=== PATIENT | male | born 1985 | race Caucasian/White ===

== ENCOUNTER 2020-10-07 01:59 | Observation (INO) ==
[2020-10-07] MEDS ORDERED: MoRPHine SULFATE 4 MG/ML 1 ML CARP\\VIAL IV PRN (02:31)
[2020-10-07] MEDS ORDERED: ONDANSETRON INJ 2 MG/ML 2 ML VIAL IV STA (02:31)
[2020-10-07 02:42] LABS: Appearance Urine Clear (Clear); Bacteria Urine Automated Negative (Negative); Bilirubin Urine Negative (Negative); Blood Urine Negative (Negative); Cast Urine Automated 0 /lpf (0-5); Color Urine Yellow; Epithelial Cell Urine Auto 0-5 /lpf (0-5); Glucose Urine UA Negative (Negative); Ketones Urine Negative (Negative); Leukocyte Esterase Urine Negative (Negative); Nitrite Urine Negative (Negative); RBC Urine Automated 0-4 /hpf (0-4); Specific Gravity Urine 1.014 (1.000-1.030); Urobilinogen Urine Negative (Negative); WBC Urine Automated 0 /hpf (0-5); pH Urine 7.5 (4.5-7.5)
[2020-10-07 02:43] LABS: Basophils # (auto) 0.01 K/uL (0-0.2); Basophils % (auto) 0.1 %; Eosinophils # (auto) 0.06 K/uL (0-0.5); Eosinophils % (auto) 0.5 %; Hematocrit (blood only) 39.4 % (42-52); Hemoglobin 13.6 g/dL (14.0-18.0); Immature Granulocytes # (auto) 0.01 K/uL (0.00-0.02); Immature Granulocytes % (auto) 0.1 %; Lymphocytes # (auto) 1.74 K/uL (1.2-3.4); Lymphocytes % (auto) 15.5 %; Mean Corpuscular Hemoglobin 32.1 pg (25-34); Mean Corpuscular Hgb Conc 34.5 g/dL (32-36); Mean Corpuscular Volume 92.9 fL (80-100); Mean Platelet Volume 11.5 fL (7.4-10.4); Monocytes # (auto) 1.21 K/uL (0.11-0.59); Monocytes % (auto) 10.8 %; Neutrophils # (auto) 8.16 K/uL (1.4-6.5); Platelet Count 269 K/uL (130-400); RDW Coefficient of Variation 12.5 % (11.5-14.5); Red Blood Count 4.24 M/uL (4.7-6.1); White Blood Count 11.19 K/uL (4.8-10.8)
[2020-10-07 02:49] LABS: Protein Urine Trace (Negative)
[2020-10-07 02:50] LABS: Albumin Level 3.5 gm/dl (3.4-5.0); BUN Creatinine Ratio 11.6 (10-20); Calcium 8.9 mg/dl (8.5-10.1); Creatinine Clr Calc Pharmacy 145.8 ml/min; Est GFR (African American) 133.7 ml/min; Est GFR (Non-African American) 115.4 ml/min; Magnesium 2.1 mg/dl (1.8-2.4)
[2020-10-07 02:53] LABS: Albumin Globulin Ratio 0.8 (0.9-2); Bilirubin,Total 0.7 mg/dl (0.2-1); Globulin 4.5 gm/dl (2.5-4.0)
--- NOTE | 2020-10-07 04:04 | History & Physical Report ---
Date of Service October 07, 2020 Assessment & Plan (1) Acute appendicitis: Due to the patient's radiographic findings and clinical presentation we admit him to the hospital proceed as follows: Provide analgesics Provide antiemetics We will initiate antibiotics the form of cefoxitin Provide IV fluid for hydration Keep the patient n.p.o. We will proceed with a laparoscopic, possible open appendectomy. I have discussed the pre the procedure with the patient and he wishes to proceed. Additional recommendations were made based on operative findings the patient's clinical course. History of Present Illness Chief Complaint: Abdominal pain Primary Care Provider: Louis Lopez This is a 35-year-old male who presented [facility] emergency department secondary to abdominal pain. Patient said that the pain initially started approximately 8 days ago and was located in the lower abdomen. He felt initially that he merely pulled a muscle while working out in the gym so he did not initially seek medical attention. He notes over the ensuing several days the pain has been persistent and gotten somewhat worse. Has had some nausea without vomiting. He has noted some low-grade fevers. That the pain is located primarily now in the right lower quadrant and is worse with movement. He does not note any palliative factors. He also notes the pain does not radiate anywhere. He has never had any surgery on his abdomen and he has not eaten since yesterday. The patient denies any other health issues. In the emergency department the patient did have labs and imaging which I dependently reviewed. He did have a CT scan of the abdomen that showed evidence of acute appendicitis without any evidence of complication. The appendix did appear dilated measuring approximate 14 mm in size with surrounding fat stranding. Labs consisted of a CBC where his white blood cell count was 11.1. His hemoglobin and hematocrit were 13.6 and 39.4 respectively. His platelet count was noted be within normal range. Chemistry profile revealed his sodium, potassium, BUN, and creatinine were all within normal range. A Covid test has been ordered and is pending. At the time my interview the patient was resting in bed, he did have a low-grade fever and was in no distress. Allergies Allergy/AdvReac Type Severity Reaction Status Date / Time No Known Allergies Allergy Unverified 10/07/20 02:30 Home Medications Medication Instructions Recorded Confirmed Type acetaminophen [Tylenol Extra 1,000 mg PO Q6H PRN 10/07/20 10/07/20 History Strength] cyclobenzaprine 10 mg PO HS 10/07/20 10/07/20 History diclofenac sodium 75 mg PO BID 10/07/20 10/07/20 History doxycycline hyclate 100 mg PO BID 10/07/20 10/07/20 History Past Med/Surg History Medical History Acute appendicitis No chronic diseases present Social History Smoking Status: Current some day smoker Second Hand Exposure: No; Hx Alcohol Use: Yes Alcohol type: wine Hx Substance Use: No Preferred Language: Venezuelan Communication Ability: Effective Bottom Buffer Required: No Beliefs That Will Affect Care: None Current Living Situation: Spouse Other Information That Helps Us Care for You: No Feels Safe at Home: Yes Safety Concerns: Feels Safe At This Time Assistive Devices: None Review of Systems Constitutional: + fever Eyes: no diplopia Ear, Nose, Mouth, Throat: no ear pain Respiratory: no cough and no dyspnea Cardiovascular: no chest pain Gastrointestinal: + abdominal pain and + nausea Genitourinary: no dysuria Musculoskeletal: no back pain Integumentary: no rash Neurologic: no localized weakness Physical Exam Constitutional: well developed and well nourished; no acute distress Eyes: no conjunctival abnormality ENMT: Ears: no hearing impairment Neck: trachea midline Respiratory: normal respiratory effort, lungs clear to auscultation Cardiovascular: Rate/Rhythm: regular rate and regular rhythm Gastrointestinal (Abdomen): Abdomen is soft and nondistended. There is no rebound tenderness or guarding. The patient did have pain with palpation in the right lower quadrant over McBurney's point. Musculoskeletal: No calf tenderness Skin: no rashes, warm and dry Neurologic: moves all extremities Psychiatric: A+Ox3, euthymic affect Results & Data Results & Data ([facility]) Vital Signs (Past 12 Hours) Vital Signs Temp Pulse Pulse Resp BP BP Pulse Ox 10/07/20 03:40 98 10/07/20 03:31 97 10/07/20 03:30 139/92 96 10/07/20 03:20 97 10/07/20 03:10 97 10/07/20 03:01 97 10/07/20 03:00 152/104 H 97 10/07/20 02:57 154/90 H 96 10/07/20 02:39 104 H 19 154/90 H 97 10/07/20 02:33 38.6 C H 101 H 20 156/106 H 98 10/07/20 02:26 106 H 19 156/106 H 98 10/07/20 02:04 37.6 C H 122 H 20 134/83 98 Supervising Physician Co-Signing Physician Notes I personally saw and evaluated the patient with Simone Lawrence PA-C and agree with the assessment and plan. 35 yo male with acute appendicitis -NPO -ABX -To OR today for laparoscopic appendectomy, possible open -Consent obtained risks discussed including bleeding, infection, leak, abscess PG Care Time/CCT Total # of Minutes Spent Total Time Spent with Patient: Total time spent is greater than 50% in coordination of care (as documented) at patient's floor/unit and/or counseling patient: Coding Level of Care Code 47048 OBS Care - Level 3 Diagnoses Acute appendicitis K35.80
[2020-10-07] MEDS ORDERED: ONDANSETRON INJ 2 MG/ML 2 ML VIAL IV PRN ×2 (04:07→08:59)
[2020-10-07] MEDS ORDERED: cefOXitin 2,000 MG/60 ML BAG IV STA (04:07)
[2020-10-07] MEDS: LACTATED RINGER'S 1,000 ML IV SCH ×3 (04:25→20:43)
--- NOTE | 2020-10-07 05:22 | Emergency Department Note ---
History of Present Illness General Chief complaint: Abdominal Pain Stated complaint: FEVER, ABD. PAIN, BACK PAIN, NECK PAIN Time Seen by Provider: 10/07/20 02:22 History of Present Illness Maximum Pain Intensity: 8 This is a 35-year-old male presenting to the emergency department for evaluation of right-sided abdominal pain for the past 8 days. The patient states that he initially had some mild discomfort after working out at the gym and contacted his primary care physician through telehealth visit. The patient was started on Flexeril and diclofenac for presumed musculoskeletal etiology. The patient states that his symptoms persisted and worsened. He began to run a low-grade f ever and went to an urgent care clinic. They felt that he may have a urinary tract infection and did perform urine culture with unknown results. The patient was started on doxycycline, which she states he has been taking as prescribed. The patient discomfort has continued to worsen over the past day. His discomfort is now more distinct in the right lower quadrant and suprapubic region. He has not had an appetite and has not eaten since yesterday. He is nauseated without vomiting. The patient is usually healthy without history of abdominal surgery in the past. He does not take medication for chronic disease. He rates his current discomfort an 8/10 and does not identify aggravating or alleviating factors. Home Medications Medication Instructions Recorded Confirmed Type acetaminophen [Tylenol Extra 1,000 mg PO Q6H PRN 10/07/20 10/07/20 History Strength] cyclobenzaprine 10 mg PO HS 10/07/20 10/07/20 History diclofenac sodium 75 mg PO BID 10/07/20 10/07/20 History doxycycline hyclate 100 mg PO BID 10/07/20 10/07/20 History Allergies Allergy/AdvReac Type Severity Reaction Status Date / Time No Known Allergies Allergy Unverified 10/07/20 02:30 Past Med/Surg History Medical History Acute appendicitis No chronic diseases present Social History Smoking Status: Never smoker Feels Safe at Home: Yes Review of Systems A total of 10 systems reviewed and were otherwise negative Physical Exam Vital Signs Vital Signs - 24 hr 10/07/20 02:04 10/07/20 02:26 10/07/20 02:33 Temperature 37.6 C H 38.6 C H Temperature Source Temporal Artery Scan Oral Pulse Rate 122 H 106 H Pulse Rate [Apical] 101 H Pulse Rate from SpO2 Sensor 105 H Pulse Rhythm [Apical] Regular Pulse Strength [Apical] Normal Respiratory Rate 20 19 20 Respiratory Effort / Characteristics Non-Labored Spontaneous Non-Labored Spontaneous Respiratory Depth Normal Normal Respiratory Pattern Regular Blood Pressure 134/83 156/106 H Blood Pressure [Right Arm] 156/106 H Blood Pressure Mean 100 122 Blood Pressure Mean [Right Arm] 122 Blood Pressure Position Sitting Blood Pressure Position [Right Arm] Sitting Pulse Oximetry 98 98 98 Oxygen Delivery Method Room Air Room Air Room Air Sepsis Recent Fever Within 48 Hours Yes Sepsis New/Unexplained Change in Mental Status N/A Sepsis Action Taken by Nursing No Action Required 10/07/20 02:39 10/07/20 02:57 10/07/20 03:00 Temperature Temperature Source Pulse Rate 104 H Pulse Rate [Apical] Pulse Rate from SpO2 Sensor 105 H 98 H 94 H Pulse Rhythm [Apical] Pulse Strength [Apical] Respiratory Rate 19 Respiratory Effort / Characteristics Respiratory Depth Respiratory Pattern Blood Pressure 154/90 H 154/90 H 152/104 H Blood Pressure [Right Arm] Blood Pressure Mean 111 111 120 Blood Pressure Mean [Right Arm] Blood Pressure Position Blood Pressure Position [Right Arm] Pulse Oximetry 97 96 97 Oxygen Delivery Method Room Air Room Air Room Air Sepsis Recent Fever Within 48 Hours Sepsis New/Unexplained Change in Mental Status Sepsis Action Taken by Nursing 10/07/20 03:01 10/07/20 03:10 10/07/20 03:20 Temperature Temperature Source Pulse Rate Pulse Rate [Apical] Pulse Rate from SpO2 Sensor 98 H 91 H 91 H Pulse Rhythm [Apical] Pulse Strength [Apical] Respiratory Rate Respiratory Effort / Characteristics Respiratory Depth Respiratory Pattern Blood Pressure Blood Pressure [Right Arm] Blood Pressure Mean Blood Pressure Mean [Right Arm] Blood Pressure Position Blood Pressure Position [Right Arm] Pulse Oximetry 97 97 97 Oxygen Delivery Method Sepsis Recent Fever Within 48 Hours Sepsis New/Unexplained Change in Mental Status Sepsis Action Taken by Nursing 10/07/20 03:30 10/07/20 03:31 10/07/20 03:40 Temperature Temperature Source Pulse Rate Pulse Rate [Apical] Pulse Rate from SpO2 Sensor 94 H 93 H 95 H Pulse Rhythm [Apical] Pulse Strength [Apical] Respiratory Rate Respiratory Effort / Characteristics Respiratory Depth Respiratory Pattern Blood Pressure 139/92 Blood Pressure [Right Arm] Blood Pressure Mean 107 Blood Pressure Mean [Right Arm] Blood Pressure Position Blood Pressure Position [Right Arm] Pulse Oximetry 96 97 98 Oxygen Delivery Method Sepsis Recent Fever Within 48 Hours Sepsis New/Unexplained Change in Mental Status Sepsis Action Taken by Nursing 10/07/20 04:00 10/07/20 04:31 10/07/20 05:09 Temperature Temperature Source Pulse Rate 89 Pulse Rate [Apical] 93 H Pulse Rate from SpO2 Sensor 98 H Pulse Rhythm [Apical] Pulse Strength [Apical] Respiratory Rate 16 16 16 Respiratory Effort / Characteristics Non-Labored Spontaneous Respiratory Depth Normal Respiratory Pattern Blood Pressure 148/104 H 134/87 Blood Pressure [Right Arm] 130/82 Blood Pressure Mean 118 Blood Pressure Mean [Right Arm] 98 Blood Pressure Position Blood Pressure Position [Right Arm] Pulse Oximetry 97 98 95 Oxygen Delivery Method Room Air Room Air Sepsis Recent Fever Within 48 Hours Sepsis New/Unexplained Change in Mental Status Sepsis Action Taken by Nursing VITALS: Vitals are noted on the nurse's note and reviewed by myself. Vital signs with noted fever GENERAL: Well-developed, well-nourished, white male, who is in no acute distress and resting comfortably. Patient is cooperative with the examination. HEAD: Normocephalic atraumatic. HEART: Regular rate and rhythm without murmurs gallops or rubs. LUNGS: Clear to auscultation bilaterally without wheezes, rales or rhonchi. No retractions or accessory muscle use. ABDOMEN: Positive normal bowel sounds x 4. Soft with both suprapubic and right lower quadrant tenderness on palpation. No rebound or guarding. No upper abdominal tenderness or CVA tenderness. MUSCULOSKELETAL: No muscle atrophy, erythema, or edema noted. Full range of motion in all extremities. NEURO: Patient was alert and oriented to person place and time. CN II through XII grossly intact. Course Administered Medications Lactated Ringer's (Lr) 1,000 mls @ 125 mls/hr IV .Q8H MATILDA Stop: 11/06/20 04:14 Last Admin: 10/07/20 04:25 Dose: 125 mls/hr Documented by: [id number] Morphine Sulfate (Morphine Sulfate 4 Mg/Ml 1 Ml Carp\Vial) 4 mg IV Q1H PRN PRN Reason: Pain Stop: 10/21/20 02:30 Last Admin: 10/07/20 04:24 Dose: 4 mg Documented by: [id number] Discontinued Medications Cefoxitin Sodium (Mefoxin) 2,000 mg in 60 mls @ 100 mls/hr IV NOW STA Stop: 10/07/20 04:42 Last Infusion: 10/07/20 05:05 Dose: 0 mls/hr Documented by: [id number] Admin: 10/07/20 04:25 Dose: 100 mls/hr Documented by: [id number] Ondansetron HCl (Ondansetron Inj 2 Mg/Ml 2 Ml Vial) 4 mg IV NOW STA Stop: 10/07/20 02:32 Last Admin: 10/07/20 04:23 Dose: 4 mg Documented by: [id number] Medical Decision Making Differential Diagnosis Differential diagnosis: Etiologies such as biliary colic, cholecystitis, hepatitis, pancreatitis, cardiac disease, pancreatitis, gastritis, peptic ulcer disease, appendicitis, cystitis, diverticulitis, mesenteric ischemia, inflammatory bowel disease, ileus, bowel obstruction, testicular/adnexal torsion, aortic pathology, shingles, as well as others were considered Laboratory Data Result diagrams: 10/07/20 02:23 10/07/20 02:23 Lab Results 10/07/20 10/07/20 10/07/20 Range/Units 02:23 02:23 02:23 WBC 11.19 H (4.8-10.8) K/uL RBC 4.24 L (4.7-6.1) M/uL Hgb 13.6 L (14.0-18.0) g/dL Hct 39.4 L (42-52) % MCV 92.9 (80-100) fL MCH 32.1 (25-34) pg MCHC 34.5 (32-36) g/dL RDW Std Deviation 43.0 (36.4-46.3) fL RDW Coeff of [place] 12.5 (11.5-14.5) % Plt Count 269 (130-400) K/uL MPV 11.5 H (7.4-10.4) fL Immature Gran % (Auto) 0.1 % Neut % (Auto) 73.0 % Lymph % (Auto) 15.5 % Lyman % (Auto) 10.8 % Eos % (Auto) 0.5 % Baso % (Auto) 0.1 % Neut # (Auto) 8.16 H (1.4-6.5) K/uL Lymph # (Auto) 1.74 (1.2-3.4) K/uL Lyman # (Auto) 1.21 H (0.11-0.59) K/uL Eos # (Auto) 0.06 (0-0.5) K/uL Baso # (Auto) 0.01 (0-0.2) K/uL Immature Gran # (Auto) 0.01 (0.00-0.02) K/uL Sodium 137 (136-145) mmol/L Potassium 4.0 (3.5-5.1) mmol/L Chloride 107 (98-107) mmol/L Carbon Dioxide 25 (21-32) mmol/L Anion Gap 5.0 (3-11) BUN 9 (7-18) mg/dl Creatinine 0.82 (0.6-1.4) mg/dl Est Cr Clr Drug Dosing 145.8 ml/min Est GFR ( Amer) 133.7 ml/min Est GFR (Non-Af Amer) 115.4 ml/min BUN/Creatinine Ratio 11.6 (10-20) Glucose 139 H (70-99) mg/dl Lactate (0.4-2.0) mmol/L Calcium 8.9 (8.5-10.1) mg/dl Magnesium 2.1 (1.8-2.4) mg/dl Total Bilirubin 0.7 (0.2-1) mg/dl AST 87 H (15-37) U/L ALT 129 H (12-78) U/L Alkaline Phosphatase 152 H (45-117) U/L Total Protein 8.0 (6.4-8.2) gm/dl Albumin 3.5 (3.4-5.0) gm/dl Globulin 4.5 H (2.5-4.0) gm/dl Albumin/Globulin Ratio 0.8 L (0.9-2) Lipase 123 (73-393) U/L Urine Color Yellow Urine Appearance Clear (Clear) Urine pH 7.5 (4.5-7.5) Ur Specific [place] 1.014 (1.000-1.030) Urine Protein Trace H (Negative) Urine Glucose (UA) Negative (Negative) Urine Ketones Negative (Negative) Urine Blood Negative (Negative) Urine Nitrite Negative (Negative) Urine Bilirubin Negative (Negative) Urine Urobilinogen Negative (Negative) Ur Leukocyte Esterase Negative (Negative) Urine WBC (Auto) 0 (0-5) /hpf Urine RBC (Auto) 0-4 (0-4) /hpf U Hyaline Cast (Auto) 0 (0-5) /lpf U Epithel Cells (Auto) 0-5 (0-5) /lpf Urine Bacteria (Auto) Negative (Negative) COVID-19 Eval Order SARS-CoV-2 (PCR) (Negative) Monoscreen (Negative) 10/07/20 10/07/20 10/07/20 Range/Units 02:23 03:11 03:54 WBC (4.8-10.8) K/uL RBC (4.7-6.1) M/uL Hgb (14.0-18.0) g/dL Hct (42-52) % MCV (80-100) fL MCH (25-34) pg MCHC (32-36) g/dL RDW Std Deviation (36.4-46.3) fL RDW Coeff of [place] (11.5-14.5) % Plt Count (130-400) K/uL MPV (7.4-10.4) fL Immature Gran % (Auto) % Neut % (Auto) % Lymph % (Auto) % Lyman % (Auto) % Eos % (Auto) % Baso % (Auto) % Neut # (Auto) (1.4-6.5) K/uL Lymph # (Auto) (1.2-3.4) K/uL Lyman # (Auto) (0.11-0.59) K/uL Eos # (Auto) (0-0.5) K/uL Baso # (Auto) (0-0.2) K/uL Immature Gran # (Auto) (0.00-0.02) K/uL Sodium (136-145) mmol/L Potassium (3.5-5.1) mmol/L Chloride (98-107) mmol/L Carbon Dioxide (21-32) mmol/L Anion Gap (3-11) BUN (7-18) mg/dl Creatinine (0.6-1.4) mg/dl Est Cr Clr Drug Dosing ml/min Est GFR ( Amer) ml/min Est GFR (Non-Af Amer) ml/min BUN/Creatinine Ratio (10-20) Glucose (70-99) mg/dl Lactate 0.9 (0.4-2.0) mmol/L Calcium (8.5-10.1) mg/dl Magnesium (1.8-2.4) mg/dl Total Bilirubin (0.2-1) mg/dl AST (15-37) U/L ALT (12-78) U/L Alkaline Phosphatase (45-117) U/L Total Protein (6.4-8.2) gm/dl Albumin (3.4-5.0) gm/dl Globulin (2.5-4.0) gm/dl Albumin/Globulin Ratio (0.9-2) Lipase (73-393) U/L Urine Color Urine Appearance (Clear) Urine pH (4.5-7.5) Ur Specific [place] (1.000-1.030) Urine Protein (Negative) Urine Glucose (UA) (Negative) Urine Ketones (Negative) Urine Blood (Negative) Urine Nitrite (Negative) Urine Bilirubin (Negative) Urine Urobilinogen (Negative) Ur Leukocyte Esterase (Negative) Urine WBC (Auto) (0-5) /hpf Urine RBC (Auto) (0-4) /hpf U Hyaline Cast (Auto) (0-5) /lpf U Epithel Cells (Auto) (0-5) /lpf Urine Bacteria (Auto) (Negative) COVID-19 Eval Order Covid19 at [facility] SARS-CoV-2 (PCR) (Negative) Monoscreen Negative (Negative) 10/07/20 Range/Units 03:54 WBC (4.8-10.8) K/uL RBC (4.7-6.1) M/uL Hgb (14.0-18.0) g/dL Hct (42-52) % MCV (80-100) fL MCH (25-34) pg MCHC (32-36) g/dL RDW Std Deviation (36.4-46.3) fL RDW Coeff of [place] (11.5-14.5) % Plt Count (130-400) K/uL MPV (7.4-10.4) fL Immature Gran % (Auto) % Neut % (Auto) % Lymph % (Auto) % Lyman % (Auto) % Eos % (Auto) % Baso % (Auto) % Neut # (Auto) (1.4-6.5) K/uL Lymph # (Auto) (1.2-3.4) K/uL Lyman # (Auto) (0.11-0.59) K/uL Eos # (Auto) (0-0.5) K/uL Baso # (Auto) (0-0.2) K/uL Immature Gran # (Auto) (0.00-0.02) K/uL Sodium (136-145) mmol/L Potassium (3.5-5.1) mmol/L Chloride (98-107) mmol/L Carbon Dioxide (21-32) mmol/L Anion Gap (3-11) BUN (7-18) mg/dl Creatinine (0.6-1.4) mg/dl Est Cr Clr Drug Dosing ml/min Est GFR ( Amer) ml/min Est GFR (Non-Af Amer) ml/min BUN/Creatinine Ratio (10-20) Glucose (70-99) mg/dl Lactate (0.4-2.0) mmol/L Calcium (8.5-10.1) mg/dl Magnesium (1.8-2.4) mg/dl Total Bilirubin (0.2-1) mg/dl AST (15-37) U/L ALT (12-78) U/L Alkaline Phosphatase (45-117) U/L Total Protein (6.4-8.2) gm/dl Albumin (3.4-5.0) gm/dl Globulin (2.5-4.0) gm/dl Albumin/Globulin Ratio (0.9-2) Lipase (73-393) U/L Urine Color Urine Appearance (Clear) Urine pH (4.5-7.5) Ur Specific [place] (1.000-1.030) Urine Protein (Negative) Urine Glucose (UA) (Negative) Urine Ketones (Negative) Urine Blood (Negative) Urine Nitrite (Negative) Urine Bilirubin (Negative) Urine Urobilinogen (Negative) Ur Leukocyte Esterase (Negative) Urine WBC (Auto) (0-5) /hpf Urine RBC (Auto) (0-4) /hpf U Hyaline Cast (Auto) (0-5) /lpf U Epithel Cells (Auto) (0-5) /lpf Urine Bacteria (Auto) (Negative) COVID-19 Eval Order SARS-CoV-2 (PCR) NEGATIVE (Negative) Monoscreen (Negative) Imaging Data Radiologist's Impression: Preliminary Findings Only See Final Report For Complete Findings CT ABDOMEN & PELVIS Without Contrast: Acute appendicitis. No evidence of complication. The appendix appears dilated to approximately 14 mm with surrounding fatty stranding. Appendix is located in the retrocecal region. No radiopaque kidney stone or hydronephrosis. Mild reactive fatty stranding about the right ureter adjacent to the inflamed appendix. MDM Narrative Physical exam and history were performed. Nursing notes, EMR, and Medication List were personally reviewed. Patient appears to have abdominal pain for the past 8 days. He is currently tender in the right lower quadrant and suprapubic area. IV access was established and labs were obtained. He was hydrated with normal saline and given IV morphine and IV Zofran for comfort. CT scan of the abdomen and pelvis without contrast was ordered. Blood cultures and lactic were performed. The patient's blood work is as above and was reviewed. He does have an elevated white blood cell count of 11.19. He is mildly anemic at 13.6 without comparison labs. Lipase is not diagnostic. His transaminases are elevated and because of this a mono test and acute hepatitis panel was performed. Lyman is negative and hepatitis is pending. Magnesium is 2.1. Lactic is negative. Urine is without evidence of infection. CT scan was performed and reviewed by myself and radiology. CT scan shows a 14 mm appendix consistent with acute appendicitis. Covid test was performed. The case was discussed with the on-call surgical team. The patient was evaluated at bedside by Stephane Lawrence PA-C. The patient will be started on Mefoxin and admitted through the surgical team service. Please see their dictation for further patient course, plan, and disposition. The chart was completed utilizing [employer] Voice Recognition Software. Grammatical errors, random word insertions, pronoun errors, and incomplete sentences are an occasional consequence of this system due to software limitations, ambient noise, and hardware issues. Any formal questions or concerns about the content, text, or information contained within the body of this dictation should be directly addressed to the provider for clarification. . Impression & Plan Acute appendicitis, Abdominal pain, lower, Fever Discharge Plan Visit Data Chief Complaint: Abdominal Pain Stated Complaint: FEVER, ABD. PAIN, BACK PAIN, NECK PAIN ED Provider: [facility] Midlevel Provider: Torey Garza Discharge Problem: Acute appendicitis, Abdominal pain, lower, Fever Patient Disposition: Being Evaluated by Surgeon Discharge Instructions Interventions: ED Discharge Assessment Last Done: 10/07/20 05:09 Forms Stand Alone Forms: [facility] Prescriptions Prescriptions: No Action cyclobenzaprine 10 mg tablet 10 mg PO HS RF: 0 doxycycline hyclate 100 mg capsule 100 mg PO BID RF: 0 diclofenac sodium 75 mg tablet,delayed release (DR/EC) 75 mg PO BID RF: 0 acetaminophen [Tylenol Extra Strength] 500 mg Tablet 1,000 mg PO Q6H PRN (Reason: Pain) RF: 0 Referrals Referrals: Louis Lopez [Primary Care Provider] - Discharge Problem: Acute appendicitis Qualifiers: Acute appendicitis type: other Qualified Code(s): K35.890 - Other acute appendicitis without perforation or gangrene Fever Qualifiers: Fever type: unspecified Qualified Code(s): R50.9 - Fever, unspecified
--- NOTE | 2020-10-07 06:32 | History & Physical Bridge Note ---
Date of Service October 07, 2020 History & Physical Bridge Note I have examined the patient, reviewed the History & Physical and in the interval since the performance of the History & Physical I have noted the following changes of clinical significance: no changes noted
[2020-10-07] MEDS ORDERED: BUPIVACAINE/EPINEPHRINE 0.5% MPF 1:200,000 30 ML VIAL ONE (06:54)
[2020-10-07] MEDS ORDERED: fentaNYL citrate 100 MCG/2 ML VIAL ONE ×2 (06:56→09:32)
[2020-10-07] MEDS ORDERED: MIDAZOLAM HCL 1 MG/ML 2ML VIAL ONE (06:56)
--- NOTE | 2020-10-07 07:26 | Anesthesiology Consultation ---
Date of Service October 07, 2020 Assessment & Plan (1) Encounter for pre-operative examination: Chart Review Chart Review: Acceptable Risk for Surgery and Patient NOT seen in Pre Admission Testing Consults Requested none ASA ASA2 Proposed Anesthesia Anesthesia Type: General Risk / Benefits Reviewed With: PT / POA / Parent / Guardian, Accepts Plan and Informed Consent Obtained History Surgery Operation Date: 10/07/20 06:45 Proposed Procedures p Laparoscopic Appendectomy - Jose Dominique, DO Height/Weight Height: 5 ft 9 in Weight: 96.9 kg Allergies Allergy/AdvReac Type Severity Reaction Status Date / Time No Known Allergies Allergy Unverified 10/07/20 02:30 Medications Home Medications Medication Instructions Recorded Confirmed Last Taken acetaminophen [Tylenol Extra 1,000 mg PO Q6H PRN 10/07/20 10/07/20 10/06/20 23:00 Strength] cyclobenzaprine 10 mg PO HS 10/07/20 10/07/20 10/03/20 diclofenac sodium 75 mg PO BID 10/07/20 10/07/20 10/06/20 10:30 doxycycline hyclate 100 mg PO BID 10/07/20 10/07/20 10/06/20 20:00 Active Medications Generic Name Dose Route Start Last Admin Trade Name Freq PRN Reason Stop Dose Admin Lactated Ringer's 1,000 mls @ 125 mls/hr 10/07/20 04:15 10/07/20 07:22 Lr IV 11/06/20 04:14 0 mls/hr .Q8H MATILDA Infusion NPO Date Last Intake of Fluids: 10/06/20 Time Last Intake of Fluids: 22:00 Date Last Intake of Solids: 10/06/20 Time Last Intake of Solids: 22:00 Past Medical History Medical History Acute appendicitis No chronic diseases present Exercise / Class Metabolic Activity II 4-5 Yardwork/Stairs/Walk up hill Past Surgical History Surgical History History of repair of ACL Past Anesthesia History No Hx of Anesthesia Complications History of PONV No Hx of PONV Social History Smoking Status: Current some day smoker tobacco type: cigars Hx Alcohol Use: Yes Alcohol type: wine alcohol intake frequency: a few times a month Hx Substance Use: No Review of Systems Negative for chest pain or shortness of breath. Patient denies active symptoms of GERD. Positive for JAMESON and fever Physical Exam Vital Signs Last Vital Signs Temp 36.9 C 10/07/20 05:29 Pulse 94 H 10/07/20 05:29 Resp 16 10/07/20 05:29 BP 132/90 10/07/20 05:29 Pulse Ox 98 10/07/20 05:29 Constitutional not obese ENMT Mouth: no TMJ abnormality and oral opening not small Thyromental Distance: > or= 3.5 Finger Breadths Mallampati Class: II Neck normal visual inspection; neck extension not limited Respiratory normal respiratory effort Cardiovascular Rate/Rhythm: regular rate and regular rhythm Neurologic moves all extremities Psychiatric Orientation: alert and oriented x 3 Lab Results Anesthesia Preop Results Results Anesthesia Widget: WBC 11.19 K/uL (4.8-10.8) H 10/07/20 Hgb 13.6 g/dL (14.0-18.0) L 10/07/20 Hct 39.4 % (42-52) L 10/07/20 Plt 269 K/uL (130-400) 10/07/20 Na 137 mmol/L (136-145) 10/07/20 K 4.0 mmol/L (3.5-5.1) 10/07/20 Cl 107 mmol/L (98-107) 10/07/20 CO2 25 mmol/L (21-32) 10/07/20 BUN 9 mg/dl (7-18) 10/07/20 Creat 0.82 mg/dl (0.6-1.4) 10/07/20 Glucose Level 139 mg/dl (70-99) H 10/07/20 Urine Color Yellow 10/07/20 Urine Appearance Clear (Clear) 10/07/20 Urine pH 7.5 (4.5-7.5) 10/07/20 Urine Specific [place] 1.014 (1.000-1.030) 10/07/20 Urine Protein Trace (Negative) H 10/07/20 Urine Glucose (UA) Negative (Negative) 10/07/20 Urine Ketones Negative (Negative) 10/07/20 Urine Blood Negative (Negative) 10/07/20 Urine Nitrite Negative (Negative) 10/07/20 Urine Bilirubin Negative (Negative) 10/07/20 Urine Urobilinogen Negative (Negative) 10/07/20 Urine Leukocyte Esterase Negative (Negative) 10/07/20 Urine WBC (Auto) 0 /hpf (0-5) 10/07/20 Urine RBC (Auto) 0-4 /hpf (0-4) 10/07/20 Urine Hyaline Casts (Auto) 0 /lpf (0-5) 10/07/20 Urine Epithelial Cells (Auto) 0-5 /lpf (0-5) 10/07/20 Urine Bacteria (Auto) Negative (Negative) 10/07/20 COVID-19 PCR NEGATIVE (Negative) 10/07/20 Testing Laboratory Results 10/07/20 02:23 10/07/20 02:23 Urine Color Yellow 10/07/20 02:23 Urine Appearance Clear (Clear) 10/07/20 02:23 Urine pH 7.5 (4.5-7.5) 10/07/20 02:23 Ur Specific [place] 1.014 (1.000-1.030) 10/07/20 02:23 Urine Protein Trace (Negative) H 10/07/20 02:23 Urine Glucose (UA) Negative (Negative) 10/07/20 02:23 Urine Ketones Negative (Negative) 10/07/20 02:23 Urine Nitrite Negative (Negative) 10/07/20 02:23 Ur Leukocyte Esterase Negative (Negative) 10/07/20 02:23 Urine WBC (Auto) 0 /hpf (0-5) 10/07/20 02:23 Urine RBC (Auto) 0-4 /hpf (0-4) 10/07/20 02:23 U Hyaline Cast (Auto) 0 /lpf (0-5) 10/07/20 02:23 U Epithel Cells (Auto) 0-5 /lpf (0-5) 10/07/20 02:23 Urine Bacteria (Auto) Negative (Negative) 10/07/20 02:23
--- NOTE | 2020-10-07 07:38 | CT Scan Report ---
CT SCAN OF THE ABDOMEN AND PELVIS WITHOUT CONTRAST CLINICAL HISTORY: Right abdominal and flank pain. COMPARISON STUDY: March 2012 TECHNIQUE: CT scan of the abdomen and pelvis was performed from the lung bases to the proximal femurs . Images are reviewed in the axial, sagittal, and coronal planes. IV contrast was not administered fo r this examination. A dose lowering technique was utilized adhering to the principles of ALARA. CT DOSE: 733.12 mGy.cm FINDINGS: Lower chest: The heart is normal in size and configuration, without pericardial effusion. The lung ba ses and pleural spaces are clear. Liver: The unenhanced liver is normal in size, contour, and attenuation. There is no intrahepatic bipin iary ductal dilatation. Gallbladder: Unremarkable. Spleen: Normal in size and attenuation. Pancreas: Unremarkable. Adrenal glands: Unremarkable. Kidneys: No renal, ureteral, or bladder calculi are visualized. Bowel: There are no transition zones indicate bowel obstruction. There is no evidence of acute divert iculitis. There is a dilated fluid-filled appendix with periappendiceal stranding. The findings are i ndicative of acute appendicitis. The appendix measures 17 mm in diameter. Peritoneum: There is no intraperitoneal free air or abdominal ascites. Vasculature: The abdominal aorta is normal in course and caliber. Adenopathy: None. Pelvic viscera: The bladder, and pelvic viscera are unremarkable. Skeletal structures: No destructive osseous lesions are seen. IMPRESSION: 1. No evidence of bowel obstruction. No evidence of free air 2. Dilated fluid-filled appendix with periappendiceal stranding. The findings are indicative of acute appendicitis. ACT 112: Negative or not required by law. Electronically signed by: Kevin Tay M.D. 10/07/2020 7:36 AM
[2020-10-07] MEDS ORDERED: PROMETHAZINE HCL 12.5 MG in SODIUM CHLORIDE 0.9% 50 ML IV PRN (08:59)
[2020-10-07] MEDS ORDERED: ATROPINE SULFATE 0.1 MG/ML 10ML SYR IV PRN (08:59)
[2020-10-07] MEDS ORDERED: ePHEDrine sulfate 50 MG/ML AMP IV PRN (08:59)
[2020-10-07] MEDS ORDERED: HYDROmorphone INJ 1 MG/ML SYRINGE IV PRN (08:59)
[2020-10-07] MEDS ORDERED: PROPOFOL IV EMULSION 10 MG/ML 20 ML VIAL IV ONE (09:23)
[2020-10-07] MEDS ORDERED: ONDANSETRON INJ 2 MG/ML 2 ML VIAL ONE (09:23)
[2020-10-07] MEDS ORDERED: ROCURONIUM BROMIDE 10 MG/ML 5 ML VIAL IV ONE (09:23)
[2020-10-07] MEDS ORDERED: DEXAMETHASONE SOD INJ 4 MG/ML VIAL ONE (09:23)
[2020-10-07] MEDS ORDERED: GLYCOPYRROLATE 0.2 MG/ML VIAL ONE (09:23)
[2020-10-07] MEDS ORDERED: NEOSTIGMINE METHYLSULFATE 5 MG/5 ML SYR ONE (09:23)
[2020-10-07] MEDS ORDERED: LARYING-O-JET KIT (LTA) ONE (09:23)
[2020-10-07] MEDS ORDERED: LIDOCAINE HCL 2% 2 ML VIAL/AMP(20MG/ML) INFIL ONE (09:23)
--- NOTE | 2020-10-07 11:15 | Post Operative Brief Note ---
PG Immediate Post Op with CF Date of Surgery October 07, 2020 Pre & Post Diagnosis Operation Date: 10/07/20 06:45 Pre-Op Diagnosis: Acute Appendicitis Post-Op Diagnosis: Acute Appendicitis with perforation and abscess I identified the patient and participated in the time-out.: Yes Procedure Operation Date: 10/07/20 06:45 Actual Procedures p Laparoscopic Appendectomy(Not Applicable) - Jose Dominique DO Surgeon Jose Dominique DO Stone And Plate Preparer Apprentice None Estimated Blood Loss 25 Findings See Below Perforated gangrenous appendix with abscess Fluids 1000mL crystalloid Specimens Specimen Description: Permanent A. Appendix Drains Jose Drain (19 puerto rican) and Edwards Catheter (16french inserted by Nara Lea RN without difficulty. Draining clear yellow urine, urine output monitored by anesthesia. To be removed at end of case) Anesthesia Type General Complications none Disposition Disposition: Recovery Room
--- NOTE | 2020-10-07 11:24 | Operative Report ---
PG Post Operative Report Pre & Post Diagnosis Operation Date: 10/07/20 06:45 Pre-Op Diagnosis: Acute Appendicitis Post-Op Diagnosis: Acute Appendicitis with perforation and abscess I identified the patient and participated in the time-out.: Yes Procedure Operation Date: 10/07/20 06:45 Actual Procedures p Laparoscopic Appendectomy(Not Applicable) - Jose Dominique DO Surgeon Jose Dominique DO Education Specialist None Estimated Blood Loss 25 Findings See Below Perforated gangrenous appendix with abscess, healthy appearing appendiceal base Fluids 1000mL crystalloid Specimens Appendix to pathology Drains 19 Fr Jose drain in RLQ Anesthesia Type General Complications none Disposition Disposition: Recovery Room Indications 35 yo male with acute appendicitis Description of Procedure The patient was brought to the OR and placed in the supine position and SCD's placed. At this time he underwent general endotracheal anesthesia without incident. At this time a Edwards catheter was placed under sterile conditions. His abdomen was prepped and draped in the usual sterile fashion. He was given appropriate pre-operative antibiotics. A timeout was called, the procedure was verified as Laparoscopic appendectomy, possible open. Surgical, anesthesia and nursing teams agreed and the procedure was begun. After injection of 0.25% Marcaine with epinephrine, a supraumbilical incision was made using a #11 blade scalpel and carried down to the fascia with a hemostat. The abdomen was then elevated with towel clamps and entered using the Veress needle confirming position using the saline drop test. Pneumoperitoneum was established and 5mm trocar was placed. Laparoscope was introduced. No injury was seen from our entrance to the abdomen. At this time a 5mm suprapubic port and 12mm LLQ port were placed under direct visualization. The patient was placed in Trendelenburg and rotated to the left. At this time the appendix was visualized and the tip was freed and elevated toward the abdominal wall after tedious blunt and sharp dissection. The appendix was gangrenous and perforated. There was an abscess that was drained. A window was created in the mesoappendix at the base of the appendix which appeared healthy. A 45mm purple load stapler was then fired across the base of the appendix which appeared healthy. The mesoappendix was then taken using Harmonic device. The appendix was then placed in an Endocatch bag and removed through the LLQ port site. Staple line was inspected and was intact. Hemostasis was complete. A small amount of purulent fluid was suctioned out of the RLQ and pelvis. A drain was placed in the RLQ abscess cavity and brought out through a stab incision in the RLQ. The 12 mm port was then closed at the fascial level using a 0 Vicryl suture using the suture passer. All ports were removed under direct visualization and no bleeding was noted. The abdomen was desufflated and the skin was closed using 4-0 Monocryl in a subcuticular fashion. Sterile dressings were applied. Edwards catheter was removed. The patient was then awakened from anesthesia having remained stable throughout the entire case and transported to PACU. All needle and sponge counts were correct x 2. I attest to the content of the Intraoperative Record and any orders documented therein. Any exceptions are noted below.
[2020-10-07] MEDS: fentaNYL citrate 100 MCG/2 ML VIAL IV PRN ×2 (11:27→11:33)
--- NOTE | 2020-10-07 12:03 | Anesthesiology Progress Note ---
Date of Service October 07, 2020 Anesthesia Post Procedure Vital Signs Vital Signs: Temp Pulse Pulse Pulse Resp BP BP 10/07/20 12:00 62 19 130/68 10/07/20 11:50 36.6 C 70 13 135/77 10/07/20 11:40 73 15 135/80 10/07/20 11:30 81 16 132/81 10/07/20 11:22 36 C L 81 19 145/77 H 10/07/20 05:29 36.9 C 94 H 16 132/90 10/07/20 05:09 89 16 134/87 10/07/20 04:31 93 H 16 130/82 10/07/20 04:00 16 148/104 H 10/07/20 03:40 10/07/20 03:31 10/07/20 03:30 139/92 10/07/20 03:20 10/07/20 03:10 10/07/20 03:01 10/07/20 03:00 152/104 H 10/07/20 02:57 154/90 H 10/07/20 02:39 104 H 19 154/90 H 10/07/20 02:33 38.6 C H 101 H 20 156/106 H 10/07/20 02:26 106 H 19 156/106 H 10/07/20 02:04 37.6 C H 122 H 20 134/83 Pulse Ox 10/07/20 12:00 99 10/07/20 11:50 98 10/07/20 11:40 100 10/07/20 11:30 100 10/07/20 11:22 100 10/07/20 05:29 98 10/07/20 05:09 95 10/07/20 04:31 98 10/07/20 04:00 97 10/07/20 03:40 98 10/07/20 03:31 97 10/07/20 03:30 96 10/07/20 03:20 97 10/07/20 03:10 97 10/07/20 03:01 97 10/07/20 03:00 97 10/07/20 02:57 96 10/07/20 02:39 97 10/07/20 02:33 98 10/07/20 02:26 98 10/07/20 02:04 98 Pain Intensity Right Abdomen: Pain Intensity: 3 Transfer of Care Handoff Completed per policy Notes Mental Status: alert / awake / arousable and participated in evaluation Patient Amnestic to Procedure: Yes Nausea / Vomiting: adequately controlled Pain: adequately controlled Airway Patency, RR, SpO2: stable & adequate BP & HR: stable & adequate Hydration State: stable & adequate Anesthetic Complications: no major complications apparent and Pt Satisfied with anesthetic care
[2020-10-07] MEDS ORDERED: ACETAMINOPHEN 650 MG SUPP PR PRN (12:16)
[2020-10-07] MEDS ORDERED: PIPERACILL/TAZOBAC CONSULT ACTIVE PRN (12:16)
[2020-10-07] MEDS ORDERED: PIPERACILLIN/TAZOBACTAM 3.375 GM in DEXTROSE 5% 100 ML IV STA (12:21)
[2020-10-07] MEDS: MoRPHine SULFATE 4 MG/ML 1 ML CARP\\VIAL IV PRN ×4 (12:56→23:45)
[2020-10-07] MEDS: oxyCODONE HCL IR 5 MG TAB (IMMEDIATE RELEASE) PO PRN ×2 (15:25→19:29)
[2020-10-07] MEDS ORDERED: Nursing to Pharmacy Communication SCH (15:30)
[2020-10-07] MEDS: PIPERACILLIN/TAZOBACTAM 3.375 GM in DEXTROSE 5% 100 ML IV SCH (18:01)
[2020-10-08] MEDS: PIPERACILLIN/TAZOBACTAM 3.375 GM in DEXTROSE 5% 100 ML IV SCH ×3 (01:45→18:29)
[2020-10-08] MEDS: MoRPHine SULFATE 4 MG/ML 1 ML CARP\\VIAL IV PRN ×2 (02:54→21:30)
[2020-10-08] MEDS: LACTATED RINGER'S 1,000 ML IV SCH ×3 (04:28→19:55)
[2020-10-08 06:48] LABS: Basophils # (auto) 0.01 K/uL (0-0.2); Basophils % (auto) 0.1 %; Eosinophils # (auto) 0.03 K/uL (0-0.5); Eosinophils % (auto) 0.2 %; Hemoglobin 11.7 g/dL (14.0-18.0); Immature Granulocytes # (auto) 0.01 K/uL (0.00-0.02); Immature Granulocytes % (auto) 0.1 %; Lymphocytes # (auto) 1.78 K/uL (1.2-3.4); Lymphocytes % (auto) 12.9 %; Mean Corpuscular Hemoglobin 31.9 pg (25-34); Mean Corpuscular Hgb Conc 33.4 g/dL (32-36); Mean Corpuscular Volume 95.4 fL (80-100); Mean Platelet Volume 11.1 fL (7.4-10.4); Monocytes # (auto) 1.85 K/uL (0.11-0.59); Monocytes % (auto) 13.4 %; Neutrophils # (auto) 10.15 K/uL (1.4-6.5); Neutrophils % (auto) 73.3 %; Platelet Count 260 K/uL (130-400); RDW Coefficient of Variation 12.8 % (11.5-14.5); RDW Standard Deviation 44.9 fL (36.4-46.3); Red Blood Count 3.67 M/uL (4.7-6.1); White Blood Count 13.83 K/uL (4.8-10.8)
[2020-10-08 07:13] LABS: Creatinine Clr Calc Pharmacy 145.8 ml/min; Est GFR (African American) 133.7 ml/min; Est GFR (Non-African American) 115.4 ml/min
[2020-10-08] MEDS ORDERED: KETOROLAC 30 MG/ML VIAL IV ONE (08:00)
--- NOTE | 2020-10-08 08:02 | Surgery Progress Note ---
Date of Service October 08, 2020 Assessment & Plan (1) Acute appendicitis: perforated with abscess keep on Zosyn WBC 13 from 11 add Toradol, increase morphine labs in AM clears as krishna Admission and Anticipated Discharge Date Admission Date: October 07, 2020 Subjective some pain, no nausea but bloated Physical Exam Gastrointestinal (Abdomen): Inspection/Auscultation: + abdomen distended and + abdominal surgical drain present (20 cc overnight) Percussion/Palpation: abdomen soft Results & Data ([facility]) Vital Signs (Past 12 Hours) Vital Signs Temp Pulse Resp BP Pulse Ox 10/08/20 07:28 36.8 C 72 16 135/85 98 10/08/20 02:49 36.5 C 69 16 134/88 98 10/07/20 22:27 37.1 C 82 16 128/81 97 PG Care Time/CCT Total # of Minutes Spent Total Time Spent with Patient: Total time spent is greater than 50% in coordination of care (as documented) at patient's floor/unit and/or counseling patient: Coding Level of Care Code None Diagnoses Acute appendicitis K35.890 Acute appendicitis type: other (1) Acute appendicitis Acute appendicitis type: other Qualified Code(s): K35.890 - Other acute appendicitis without perforation or gangrene
[2020-10-08 09:05] LABS: Hepatitis B Surface Ab Quant 52.23 mIU/mL (>or=10mIU/mL Immune); Hepatitis B Surface Antibody Immune
[2020-10-08 09:16] LABS: Hepatitis B Surf Ag Rflx Conf Neg (Neg)
[2020-10-08 09:44] LABS: Hepatitis C IgG 13Yrs+Old_Rflx Neg (Neg)
[2020-10-08] MEDS: KETOROLAC 30 MG/ML VIAL IV PRN ×2 (14:25→19:55)
[2020-10-09] MEDS: MoRPHine SULFATE 4 MG/ML 1 ML CARP\\VIAL IV PRN (00:43)
[2020-10-09] MEDS: PIPERACILLIN/TAZOBACTAM 3.375 GM in DEXTROSE 5% 100 ML IV SCH ×2 (02:41→10:16)
[2020-10-09] MEDS: LACTATED RINGER'S 1,000 ML IV SCH (04:00)
[2020-10-09] MEDS: KETOROLAC 30 MG/ML VIAL IV PRN (04:08)
[2020-10-09 06:03] LABS: Basophils # (auto) 0.01 K/uL (0-0.2); Basophils % (auto) 0.1 %; Eosinophils # (auto) 0.13 K/uL (0-0.5); Eosinophils % (auto) 1.2 %; Hematocrit (blood only) 33.1 % (42-52); Immature Granulocytes # (auto) 0.03 K/uL (0.00-0.02); Immature Granulocytes % (auto) 0.3 %; Lymphocytes # (auto) 1.52 K/uL (1.2-3.4); Lymphocytes % (auto) 13.5 %; Mean Corpuscular Hemoglobin 30.8 pg (25-34); Mean Corpuscular Hgb Conc 33.2 g/dL (32-36); Mean Corpuscular Volume 92.7 fL (80-100); Mean Platelet Volume 10.7 fL (7.4-10.4); Monocytes % (auto) 12.4 %; Neutrophils # (auto) 8.19 K/uL (1.4-6.5); Neutrophils % (auto) 72.5 %; Platelet Count 267 K/uL (130-400); RDW Coefficient of Variation 12.8 % (11.5-14.5); RDW Standard Deviation 43.5 fL (36.4-46.3); Red Blood Count 3.57 M/uL (4.7-6.1); White Blood Count 11.28 K/uL (4.8-10.8)
[2020-10-09 06:36] LABS: BUN Creatinine Ratio 9.3 (10-20); Calcium 8.4 mg/dl (8.5-10.1); Creatinine Clr Calc Pharmacy 170.7 ml/min; Est GFR (African American) 142.7 ml/min; Est GFR (Non-African American) 123.1 ml/min; Potassium 3.8 mmol/L (3.5-5.1)
--- NOTE | 2020-10-09 07:46 | Surgery Progress Note ---
Date of Service October 09, 2020 Assessment & Plan (1) Acute appendicitis: perforated with abscess on Zosyn WBC back down to 11 advance diet, recheck later today for possible d/c Admission and Anticipated Discharge Date Admission Date: October 07, 2020 Subjective tolerating liquids, feeling better Physical Exam Gastrointestinal (Abdomen): Inspection/Auscultation: + abdominal surgical drain present (40 cc overnight) Percussion/Palpation: abdomen soft Results & Data ([facility]) Vital Signs (Past 12 Hours) Vital Signs Temp Pulse Resp BP Pulse Ox 10/08/20 23:11 36.9 C 69 16 123/76 98 PG Care Time/CCT Total # of Minutes Spent Total Time Spent with Patient: Total time spent is greater than 50% in coordination of care (as documented) at patient's floor/unit and/or counseling patient: Coding Level of Care Code None Diagnoses Acute appendicitis K35.890 Acute appendicitis type: other (1) Acute appendicitis Acute appendicitis type: other Qualified Code(s): K35.890 - Other acute appendicitis without perforation or gangrene
--- NOTE | 2020-10-10 10:47 | Discharge Summary ---
Date of Service October 10, 2020 Admission HPI Per Admitting Provider This is a 35-year-old male who presented [facility] emergency department secondary to abdominal pain. Patient said that the pain initially started approximately 8 days ago and was located in the lower abdomen. He felt initially that he merely pulled a muscle while working out in the gym so he did not initially seek medical attention. He notes over the ensuing several days the pain has been persistent and gotten somewhat worse. Has had some nausea without vomiting. He has noted some low-grade fevers. That the pain is located primarily now in the right lower quadrant and is worse with movement. He does not note any palliative factors. He also notes the pain does not radiate anywhere. He has never had any surgery on his abdomen and he has not eaten since yesterday. The patient denies any other health issues. In the emergency department the patient did have labs and imaging which I dependently reviewed. He did have a CT scan of the abdomen that showed evidence of acute appendicitis without any evidence of complication. The appendix did appear dilated measuring approximate 14 mm in size with surrounding fat stranding. Labs consisted of a CBC where his white blood cell count was 11.1. His hemoglobin and hematocrit were 13.6 and 39.4 respectively. His platelet count was noted be within normal range. Chemistry profile revealed his sodium, potassium, BUN, and creatinine were all within normal range. A Covid test has been ordered and is pending. At the time my interview the patient was resting in bed, he did have a low-grade fever and was in no distress. Principal Diagnosis Perforated appendicitis with abscess Discharge Exam Constitutional WD/WN, vitals as above Gastrointestinal (Abdomen) Inspection/Auscultation: + abdominal surgical incision (clean, dry) and + abdominal surgical drain present (40 cc drainage) Percussion/Palpation: abdomen soft Discharge Data Allergies Allergy/AdvReac Type Severity Reaction Status Date / Time No Known Allergies Allergy Unverified 10/07/20 02:30 Consultations 10/07/20 03:49 Consult General Surgery Stat Procedures Performed Operation Date: 10/07/20 06:45 Actual Procedures p Laparoscopic Appendectomy(Not Applicable) - Jose Dominique, Ordered Studies 10/07/20 02:31 CT abd pelvis wo con Urgent Hospital Course (1) Acute appendicitis: 35 y/o male presented to the ER with abdominal pain for at least one week off and on after a work-out. White count was 11,[address] was consistent with acute appendicitis. He was taken to the operating room for laparoscopic appendectomy and was found to have perforation with abscess. A drain was left and he transferred to the surgical floor and continued on IV Zosyn. He was able to tolerate liquid ay on POD 1 and while his white count increased slightly to 13, he remained afebrile. On POD #2 his white count improved to 11, and he was feeling better. He able to tolerate regular diet and was stable for discharge home later in the afternoon on oral antibiotics and with the DENISE drain to be removed in the office. Total Time Total Time Spent Total Time Spent (In Minutes): 15 Discharge Plan Discharge Items Patient Disposition: Home - Self-Care Reason For Visit: APPY Discharge Diagnosis: Apendicitis Activity: As commented below Activity Comment: Walk daily Lifting: No more than 10 pounds Bathing Comment: ok to shower Driving/Machine Use: when cleared by the surgeon Non-emergency contact: Surgeon Call non-emergency contact if: you have any medication questions, your pain is worsening, you have a fever, your temperature is above 101.5 and your wound has increased redness Follow-up/Referrals: Jose Dominique DO [Physician] - 10/23/20 1:00 pm (Call office to make a 2 week follow-up appointment ) Louis Lopez [Primary Care Provider] - Diet: Regular Addtl Attending Provider Instructions: Call the office to have the drain removed when less than 30 cc drainage for 3 days Pending Studies at Discharge: No Stand-Alone Forms: [facility], Opioid Pain Management, Smoking Cessation Medications and DC Order Prescriptions: New amoxicillin-pot clavulanate [Augmentin] 875-125 mg tablet 1 tab PO BID 10 Days Qty: 20 RF: 0 oxycodone 5 mg tablet 5 - 10 mg PO Q4H Qty: 15 RF: 0 Continued cyclobenzaprine 10 mg tablet 10 mg PO HS RF: 0 doxycycline hyclate 100 mg capsule 100 mg PO BID RF: 0 diclofenac sodium 75 mg tablet,delayed release (DR/EC) 75 mg PO BID RF: 0 acetaminophen [Tylenol Extra Strength] 500 mg Tablet 1,000 mg PO Q6H PRN (Reason: Pain) RF: 0 Discharge Orders: Discharge Order (Routine); Ordered 10/09/20 Ordered By: Chin Overton Jr Admission Data Admit Date/Time: 10/07/20 04:07 Attending Provider: Jose Dominique Admit Provider: Jose Dominique Primary Care Provider: Louis Lopez Other Providers: Jose Dominique Other Interventions: Discharge Summary Assessment (RN) Last Done: 10/09/20 10:34 Coding Level of Care Code D/C Day Management <30 mins Diagnoses Acute appendicitis K35.890 Acute appendicitis type: other
== END 2020-10-09 16:05 | disposition home or self-care (01) ==
LOC: ED 01:59 → 3N 01:59